=== PATIENT | female | born 1975 | race African-American/Black ===

== ENCOUNTER 2021-05-24 02:03 | Observation (INO) | payer SELFPAY ==
[2021-05-24 05:56] VITALS: BMI 35.1
[2021-05-24] MEDS ORDERED: Ondansetron ODT 4 MG TAB PO PRN (07:37)
[2021-05-24] MEDS ORDERED: Dextrose 50% Abboject 50 ML SYRINGE SLOW IVP PRN (07:37)
[2021-05-24] MEDS ORDERED: Dextrose 5% in Water 1,000 ML IV PRN (07:37)
[2021-05-24] MEDS ORDERED: Zolpidem Tartrate 5 MG TAB PO PRN (07:37)
[2021-05-24 08:07] LABS: #Eosinphils 0.1 thou/uL (0.0-0.7); #Lymphocytes 2.2 thou/uL (1.20-3.40); #Monocytes 0.6 thou/uL (0.11-0.59); #Neutrophils 3.2 thou/uL (1.40-6.50); %Basophils 0.4 % (0.0-1.0); %Eosinophils 1.2 % (0.0-10.0); %Lymphocytes 35.9 % (21.0-51.0); %Monocytes 9.1 % (0.0-10.0); %Neutrophils 53.5 % (42.0-75.0); Hemoglobin 6.7 g/dL (12.0-16.0); Mean Corpuscular Hemoglobin 19.9 pg (27.0-31.0); Mean Corpuscular Volume 66.3 fL (78.0-98.0); Mean Platelet Volume 10.3 fL (7.4-10.4); Platelet Count 166 thou/uL (130-400); RBC Distribution Width 15.4 % (11.5-14.5); Red Blood Cell (RBC) Count 3.38 mill/uL (4.20-5.40); White Blood Cell (WBC) Count 6.1 thou/uL (4.8-10.8)
[2021-05-24 08:22] LABS: Anion Gap 12 mmol/L (10-20); BUN (Urea Nitrogen) 4 mg/dL (7.0-18.7); Calc. Creatinine Clearance 138 mL/min (70-130); Calcium 8.4 mg/dL (7.8-10.44); Carbon Dioxide 25 mmol/L (22-29); Chloride 101 mmol/L (98-107); Glucose 239 mg/dL (70-105); Iron 11 ug/dL (50-170); Iron Binding Capacity, Total 389 mcg/dL (265-497); Potassium 3.7 mmol/L (3.5-5.1); Sodium 134 mmol/L (136-145)
[2021-05-24 08:31] LABS: Hemoglobin A1c 8.6 % (4.0-6.0)
[2021-05-24 08:47] LABS: Hypochromia MODERATE=16-30 cells (100X) (0-5/hpf); MDiff Complete? YES; Microcytosis MODERATE=15-30 cells (100X) (0-5/hpf); Ovalocytes SLIGHT = 2-5 cells (100X) (0-1/hpf); Platelet Morphology Comment Appears Adequate; Polychromasia SLIGHT = 2-3 cells (100X) (0-2/hpf); Reflex for Review?? NO
[2021-05-24] MEDS: metFORMIN 500 MG TAB PO SCH (08:52)
[2021-05-24] MEDS: HumaLOG 300 UNITS/3 ML VIAL SC PRN (11:45)
[2021-05-24 13:50] LABS: SARS-CoV-2 PCR by NAA Not Detected (NotDetected)
[2021-05-24 16:35] LABS: Hemoglobin 8.2 g/dL (12.0-16.0); Platelet Count 170 thou/uL (130-400)
[2021-05-24] MEDS ORDERED: Iron Sucrose Complex 200 MG in Sodium Chloride 0.9% 100 ML IVPB SCH (17:30)
[2021-05-24] MEDS: Acetaminophen 325 MG TAB PO PRN (17:59)
[2021-05-24] MEDS ORDERED: Iron, Sodium Ferric Gluconate 250 MG in Sodium Chloride 0.9% 250 ML 250 ML IVPB SCH (20:00)
[2021-05-24] MEDS ORDERED: Ibuprofen 200 MG TAB PO PRN (20:19)
[2021-05-24] MEDS ORDERED: diphenhydrAMINE 50 MG/ML VIAL IVP SCH (23:45)
[2021-05-24] MEDS: Nitroglycerin 0.4 MG TAB (25 Tab Bottle) SL PRN (23:48)
[2021-05-24 23:58] LABS: Troponin I Less than 0.010 ng/mL (< 0.028)
[2021-05-25] MEDS: Nitroglycerin 0.4 MG TAB (25 Tab Bottle) SL PRN (00:05)
[2021-05-25] MEDS ORDERED: methylPREDNISolone Sod Succ/PF 125 MG/2 ML VIAL IVP SCH ×3 (00:51→09:00)
[2021-05-25] MEDS: Acetaminophen 325 MG TAB PO PRN (03:00)
[2021-05-25 04:45] LABS: #Lymphocytes 0.9 thou/uL (1.20-3.40); #Monocytes 0.1 thou/uL (0.11-0.59); #Neutrophils 6.5 thou/uL (1.40-6.50); %Basophils 0.6 % (0.0-1.0); %Eosinophils 0.6 % (0.0-10.0); %Monocytes 1.8 % (0.0-10.0); Mean Corpuscular HGB CONC 31.2 g/dL (32.0-36.0); Mean Corpuscular Hemoglobin 21.6 pg (27.0-31.0); Mean Corpuscular Volume 69.2 fL (78.0-98.0); Mean Platelet Volume 10.5 fL (7.4-10.4); Platelet Count 185 thou/uL (130-400); RBC Distribution Width 18.7 % (11.5-14.5); Red Blood Cell (RBC) Count 4.16 mill/uL (4.20-5.40); White Blood Cell (WBC) Count 7.6 thou/uL (4.8-10.8)
[2021-05-25] MEDS ORDERED: traMADol HCl 50 MG TAB PO SCH (05:15)
[2021-05-25] MEDS: HumaLOG 300 UNITS/3 ML VIAL SC PRN ×2 (06:00→11:10)
[2021-05-25] MEDS: metFORMIN 500 MG TAB PO SCH (07:26)
[2021-05-25 11:19] VITALS: BP 156/79; TEMP 97.9
== END 2021-05-25 14:35 | disposition home or self-care (01) ==
LOC: INTOOBSV 05:48 → 2NO 05:48
PROVIDERS: ADMIT Student in an Organized Health Care Education/Training Program; ATTEND Internal Medicine
PROC: 30233N1 Transfusion of Nonautologous Red Blood Cells into Peripheral Vein, Percutaneous Approach (ICD-10-PCS; principal; 2021-05-24)
DX: D50.0 Iron deficiency anemia secondary to blood loss (chronic) (principal); F17.210 Nicotine dependence, cigarettes, uncomplicated; E11.65 Type 2 diabetes mellitus with hyperglycemia; N92.1 Excessive and frequent menstruation with irregular cycle; Z88.5 Allergy status to narcotic agent; Z90.49 Acquired absence of other specified parts of digestive tract
CPT/HCPCS: 36415; 36416; 36430; 71045; 80048; 82274; 83036; 83540; 83550; 84484; 85025; 86850; 86870; 86900; 86901; 86922; 93005; 93010; J1200; J1815; J2916; J2930; J7050; P9016; U0003; U0005